=== PATIENT | male | born 1970 | race Caucasian/White ===

== ENCOUNTER 2021-12-24 09:36 | Outpatient (REF) | payer MEDICARE, OTHER, SELFPAY ==
[2021-12-24 11:13] LABS: Cholesterol 177 mg/dL; HDL Cholesterol 28 mg/dL; LDL Cholesterol Calculated 112 mg/dl; Triglycerides 186 mg/dL
[2021-12-24 11:55] LABS: Prostate Specific Antigen 2.94 ng/mL (<0.05-4.0)
== END 2021-12-24 09:37 | disposition home or self-care (01) ==
LOC: HO.LAB 09:36
PROVIDERS: PCP Internal Medicine; Visit Provider Nurse Practitioner Family
DX: E78.00 Pure hypercholesterolemia, unspecified (principal); Z12.5 Encounter for screening for malignant neoplasm of prostate
CPT/HCPCS: 36415; 80061; 84153

== ENCOUNTER 2022-01-01 13:18 | Outpatient (REF) | payer MEDICARE, OTHER, SELFPAY ==
--- NOTE | ~2022-01-01 | XR_ITS ---
EXAMINATION: XR BILATERAL HIPS WITH AP PELVIS CLINICAL INFORMATION: Pain COMPARISON: Left hip x-ray May 2019 TECHNIQUE: AP view of the pelvis and 2 views of each hip were obtained. FINDINGS: Bone alignment is normal. No fracture or dislocation is seen. There is arthritis at both hip joints with joint space narrowing and osteophyte formation. There is soft tissue ossification adjacent to the right greater trochanter. Bones of the pelvis are unremarkable. XR/XR hips BANDAR min 3V IMPRESSION: Bilateral hip arthritis. Soft tissue calcification adjacent to the right greater trochanter questionable for calcific bursitis or tendinitis.
== END 2022-01-01 13:19 | disposition home or self-care (01) ==
LOC: HO.XRAY 13:18
PROVIDERS: PCP Internal Medicine; Visit Provider Nurse Practitioner Family
DX: M25.552 Pain in left hip (principal); M25.551 Pain in right hip
CPT/HCPCS: 73522

== ENCOUNTER 2022-03-28 08:57 | Outpatient (REF) | payer MEDICARE, OTHER, SELFPAY ==
[2022-03-28 09:18] LABS: MANUAL DIFF FLAG NO
[2022-03-28 09:50] LABS: Basophils Percent Auto 0.3 % (0-2); Eosinophils Absolute Auto 0.3 X10*3/uL (0.0-0.4); Eosinophils Percent Auto 2.9 % (0-4); Hematocrit 44.3 % (42.0-52.0); Imm Gran Abs Auto 0.07 X10*3/uL (0.00-0.03); Imm Gran Pct Auto 0.8 % (0.0-0.4); Lymphocytes Absolute Auto 1.1 X10*3/uL (1.2-4.9); Lymphocytes Percent Auto 11.9 % (20-40); Mean Corpuscular HGB Conc 31.6 g/dl (31.0-36.0); Mean Corpuscular Hemoglobin 26.6 pg (27.0-33.0); Mean Corpuscular Volume 84.2 fL (80.0-98.0); Mean Platelet Volume 10.4 fL (9.4-12.4); Monocytes Percent Auto 11.1 % (2-11); Neutrophils Absolute Auto 6.6 x10*3/uL (2.0-8.3); Platelet Count 313 X10*3/uL (160-400); Red Blood Count 5.26 X10*6/uL (4.60-5.80); Retic HGB Equivalent 29.3 pg (30.0-35.0); Reticulocyte Percent 1.8 % (0.5-1.8); Reticulocytes Absolute 0.096 X10*6/uL (0.026-0.095); White Blood Count 9.1 X10*3/uL (4.8-10.8)
[2022-03-28 10:13] LABS: Estimated Average Glucose 143 mg/dL; Hemoglobin A1c % 6.6 %
[2022-03-28 10:29] LABS: B Type Natriuretic Peptide 305 pg/mL (<100)
[2022-03-28 10:45] LABS: Ferritin 1056 ng/mL (20-250); Free T4 (Free Thyroxine) 1.13 ng/dL (0.71-1.85); Prostate Specific Antigen Scr 1.66 ng/mL (<0.05-4.0); Thyroid Stimulating Hormone 1.05 uIU/mL (0.32-4.0); Vitamin D 25-OH Total 24.1 ng/mL (>30)
[2022-03-28 11:04] LABS: Alanine Aminotransferase 11 U/L (0-40); Albumin Level 4.6 g/dL (3.5-5.0); Alkaline Phosphatase 57 U/L (39-117); Anion Gap 20 (12-20); Aspartate Amino Transferase 14 U/L (5-37); Bilirubin Total 0.7 mg/dL (0.0-1.0); Blood Urea Nitrogen 37 mg/dL (9-16); Calcium 10.7 mg/dL (8.4-10.2); Carbon Dioxide 28 mmol/L (22-29); Chloride 93 mmol/L (96-108); Cholesterol 167 mg/dL; Estimated Glomerular Filt Rate 8; Glucose Random 180 mg/dL (60-115); HDL Cholesterol 33 mg/dL; Iron 46 mcg/dL (45-160); LDL Cholesterol Calculated 86 mg/dl; Percent Iron Saturation 17 % (15-50); Potassium 4.2 mmol/L (3.3-5.1); Sodium 137 mmol/L (135-145); Total Iron Binding Capacity 276 mcg/dL (228-428); Total Protein 8.6 g/dL (6.5-8.0); Triglycerides 243 mg/dL; Unsaturated Iron Binding 230 ug/dL
[2022-03-30 10:20] LABS: Folate 15.8 ng/mL (> or = 4.0); Vitamin B12 259 pg/mL (200-900)
== END 2022-03-28 08:58 | disposition home or self-care (01) ==
LOC: HO.LAB 08:57
PROVIDERS: PCP Internal Medicine; Visit Provider Internal Medicine
DX: E11.65 Type 2 diabetes mellitus with hyperglycemia (principal); E78.00 Pure hypercholesterolemia, unspecified; Z12.5 Encounter for screening for malignant neoplasm of prostate
CPT/HCPCS: 36415; 80053; 80061; 82306; 82607; 82728; 82746; 83036; 83540; 83880; 84153; 84439; 84443; 85025; 85045

== ENCOUNTER 2022-09-03 12:50 | Outpatient (RCR) | payer MEDICARE, OTHER, SELFPAY ==
--- NOTE | ~2022-09-03 | XR_ITS ---
EXAMINATION: XR FOOT, RIGHT CLINICAL INFORMATION: Rule out osteomyelitis. COMPARISON: None available. TECHNIQUE: AP, lateral, and oblique views of the right foot. XR/XR foot RT min 3V FINDINGS/IMPRESSION: Overlying bandage or sock as well as heterogeneous soft tissues limit evaluation for subtle lytic lucency, therefore limiting evaluation for subtle osteomyelitis. The patient is status post proximal transmetatarsal amputation. No obvious subcutaneous air is seen. No gross periosteal reaction or lytic bony lesion is identified to suggest osteomyelitis. Exuberant calcification in the region of the Achilles tendon/calcaneal insertion. Extensive small vessel arterial calcification suggests diabetic and/or renal calcific atherosclerosis.
== END 2023-05-21 16:00 | disposition home or self-care (01) ==
LOC: HO.WCC 12:50
PROVIDERS: PCP Internal Medicine; Visit Provider Surgery
DX: E11.621 Type 2 diabetes mellitus with foot ulcer (principal); L97.515 Non-pressure chronic ulcer of other part of right foot with muscle involvement without evidence of necrosis; T87.89 Other complications of amputation stump; E11.40 Type 2 diabetes mellitus with diabetic neuropathy, unspecified; E11.22 Type 2 diabetes mellitus with diabetic chronic kidney disease; N18.6 End stage renal disease; I25.10 Atherosclerotic heart disease of native coronary artery without angina pectoris; J44.9 Chronic obstructive pulmonary disease, unspecified; Z99.2 Dependence on renal dialysis; Z89.421 Acquired absence of other right toe(s)
CPT/HCPCS: 11042; 11043; 15275; 73630; 97597; Q4196

== ENCOUNTER 2023-01-26 13:17 | Outpatient (REF) | payer MEDICARE, OTHER, SELFPAY ==
[2023-01-26 13:31] LABS: MANUAL DIFF FLAG NO
[2023-01-26 13:54] LABS: Basophils Percent Auto 0.5 % (0-2); Eosinophils Absolute Auto 0.3 X10*3/uL (0.0-0.4); Eosinophils Percent Auto 3.2 % (0-4); Hematocrit 31.9 % (42.0-52.0); Imm Gran Abs Auto 0.04 X10*3/uL (0.00-0.03); Imm Gran Pct Auto 0.5 % (0.0-0.4); Lymphocytes Absolute Auto 0.6 X10*3/uL (1.2-4.9); Lymphocytes Percent Auto 7.2 % (20-40); Mean Corpuscular HGB Conc 31.3 g/dl (31.0-36.0); Mean Corpuscular Hemoglobin 27.4 pg (27.0-33.0); Mean Corpuscular Volume 87.4 fL (80.0-98.0); Mean Platelet Volume 11.2 fL (9.4-12.4); Monocytes Absolute Auto 0.7 X10*3/uL (0.1-1.2); Monocytes Percent Auto 8.8 % (2-11); Neutrophils Absolute Auto 6.5 x10*3/uL (2.0-8.3); Neutrophils Percent Auto 79.8 % (45-73); Platelet Count 199 X10*3/uL (160-400); Red Blood Count 3.65 X10*6/uL (4.60-5.80); Red Cell Distribution Width 15.3 % (11.0-16.0)
[2023-01-26 13:57] LABS: Estimated Average Glucose 134 mg/dL; Hemoglobin A1c % 6.3 %
[2023-01-26 13:58] LABS: White Blood Count 8.2 X10*3/uL (4.8-10.8)
[2023-01-26 15:01] LABS: Alanine Aminotransferase 10 U/L (0-40); Albumin Level 3.9 g/dL (3.5-5.0); Alkaline Phosphatase 79 U/L (39-117); Anion Gap 22 (12-20); Aspartate Amino Transferase 16 U/L (5-37); Bilirubin Total 1.2 mg/dL (0.0-1.0); Blood Urea Nitrogen 49 mg/dL (9-16); Calcium 9.3 mg/dL (8.4-10.2); Carbon Dioxide 26 mmol/L (22-29); Chloride 100 mmol/L (96-108); Cholesterol 114 mg/dL; Estimated Glomerular Filt Rate 9; Glucose Random 135 mg/dL (60-115); HDL Cholesterol 37 mg/dL; LDL Cholesterol Calculated 61 mg/dl; Sodium 143 mmol/L (135-145); Total Protein 7.2 g/dL (6.5-8.0); Triglycerides 80 mg/dL
[2023-01-26 15:08] LABS: Folate 14.5 ng/mL (> or = 4.0); Free T4 (Free Thyroxine) 0.93 ng/dL (0.71-1.85); Prostate Specific Antigen Scr 1.42 ng/mL (<0.05-4.0); Thyroid Stimulating Hormone 1.29 uIU/mL (0.32-4.0); Vitamin B12 399 pg/mL (200-900); Vitamin D 25-OH Total 23.3 ng/mL (>30)
== END 2023-01-26 13:18 | disposition home or self-care (01) ==
LOC: HO.LAB 13:17
PROVIDERS: PCP Internal Medicine; Visit Provider Internal Medicine
DX: E78.00 Pure hypercholesterolemia, unspecified (principal); Z12.5 Encounter for screening for malignant neoplasm of prostate; E11.22 Type 2 diabetes mellitus with diabetic chronic kidney disease; N18.6 End stage renal disease
CPT/HCPCS: 36415; 80053; 80061; 82306; 82607; 82746; 83036; 84153; 84439; 84443; 85025

== ENCOUNTER 2023-02-16 08:37 | Outpatient (REF) | payer MEDICARE, OTHER, SELFPAY ==
--- NOTE | ~2023-02-16 | XR_ITS ---
EXAMINATION: XR PELVIS AND HIP, RIGHT XR HIP, LEFT CLINICAL INDICATION: Pain. COMPARISON: 01/01/2022 AP pelvis and bilateral hips. TECHNIQUE: AP pelvis 1 view. 2 views each hip. FINDINGS: AP HIPS: Bilateral hip joint and SI joint space is maintained normal. No acute fracture or lytic process seen. The soft tissues are unremarkable. There are bilateral vascular calcifications. 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 RIGHT HIP: The right hip joint space is maintained normal. No bony erosive changes, loose bodies. No fracture or dislocation. There is soft tissue calcification adjacent to right greater trochanter, likely calcific bursitis, similar to previous study. No lytic or sclerotic process seen. LEFT HIP: There is mild reduction in the lateral left hip joint space with periacetabular spurring. No loose bodies, fracture or dislocation. The soft tissues are normal. XR/XR hip LT min 2V IMPRESSION: There is soft tissue calcification adjacent to right greater trochanter, likely calcific bursitis, similar to previous study. There is mild periacetabular spurring left hip joint. No visible acute fracture or dislocation in the pelvis or either hip joints.
--- NOTE | ~2023-02-16 | XR_ITS ---
EXAMINATION: XR PELVIS AND HIP, RIGHT XR HIP, LEFT CLINICAL INDICATION: Pain. COMPARISON: 01/01/2022 AP pelvis and bilateral hips. TECHNIQUE: AP pelvis 1 view. 2 views each hip. FINDINGS: AP HIPS: Bilateral hip joint and SI joint space is maintained normal. No acute fracture or lytic process seen. The soft tissues are unremarkable. There are bilateral vascular calcifications. 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 RIGHT HIP: The right hip joint space is maintained normal. No bony erosive changes, loose bodies. No fracture or dislocation. There is soft tissue calcification adjacent to right greater trochanter, likely calcific bursitis, similar to previous study. No lytic or sclerotic process seen. LEFT HIP: There is mild reduction in the lateral left hip joint space with periacetabular spurring. No loose bodies, fracture or dislocation. The soft tissues are normal. XR/XR hip RT w PEL1V IMPRESSION: There is soft tissue calcification adjacent to right greater trochanter, likely calcific bursitis, similar to previous study. There is mild periacetabular spurring left hip joint. No visible acute fracture or dislocation in the pelvis or either hip joints.
== END 2023-02-16 08:38 | disposition home or self-care (01) ==
LOC: HO.HOSX 08:37
PROVIDERS: Visit Provider Physician Assistant
DX: M16.0 Bilateral primary osteoarthritis of hip (principal); E11.9 Type 2 diabetes mellitus without complications
CPT/HCPCS: 73502; 99202

== ENCOUNTER 2023-03-04 13:33 | Outpatient (REF) | payer MEDICARE, OTHER, SELFPAY ==
--- NOTE | ~2023-03-04 | FL_ITS ---
EXAMINATION: FL FLUOROSCOPY-GUIDED STEROID INJECTION, BILATERAL HIP CLINICAL INDICATION: Bilateral primary osteoarthritis with hip pain. COMPARISON: Bilateral hip 02/16/2013. TECHNIQUE: Following explaining fluoroscopy-guided bilateral hip steroid injection procedure, benefits and risks, a written consent was obtained. Patient was placed supine on fluoroscopy table and right hip area was cleaned in usual sterile manner with 2% chlorhexidine solution. 1% lidocaine was injected at marked site. A 22-gauge spinal needle was then inserted from the skin into lateral right hip joint space and 2 mL of nonionic contrast was injected. A single image was obtained. Subsequently 40 mg of Depo-Medrol and 7 mL of 1% lidocaine was injected and needle withdrawn. Complete hemostasis was achieved at puncture site. Simple Band-Aid applied postprocedure. The patient was then turned around and the left hip area was exposed, cleaned and draped in usual sterile manner. A marker was initially placed at the junction of left femoral neck and head. 1% lidocaine was injected at puncture site. A 22-gauge spinal needle was advanced from the skin to the junction of femoral head and neck and 2 mL of nonionic contrast was injected and single image obtained. After confirming needle position into the joint space, 40 mg/1 mL of Depo-Medrol and 7 mL of 1% lidocaine was injected and needle withdrawn. Complete hemostasis was achieved at puncture site. Patient tolerated procedure extremely well. FLUOROSCOPY TIME: 1.0 minutes. Dose area product: 7.577 uGy-cm2 IMPRESSION/FINDINGS: Successful fluoroscopic-guided bilateral hip steroid injection performed as outlined above. There is a soft tissue calcification lateral to the right greater trochanter and mild loss of left hip joint space with periarticular spurring.
== END 2023-03-04 13:34 | disposition home or self-care (01) ==
LOC: HO.XRAY 13:33
PROVIDERS: Visit Provider Physician Assistant
DX: M16.0 Bilateral primary osteoarthritis of hip (principal)
CPT/HCPCS: 27093; 73525